=== PATIENT | female | born 1945 | race Caucasian/White ===

== ENCOUNTER 2022-11-01 17:12 | Inpatient (IN) | payer BC, OTHER ==
[~2022-11-01] VITALS: Ht 170.2 cm; Wt 61.7 kg
[2022-11-01] MEDS ORDERED: OLANZAPINE 10 MG VIAL IM ONE ×2 (17:55→18:00)
[2022-11-01 20:07] LABS: BASOPHILS # (AUTO) 0.1 K/uL (0.0-0.2); BASOPHILS % (AUTO) 1.1 % (0.0-2.0); EOSINOPHILS # (AUTO) 0.1 K/uL (0.0-0.7); EOSINOPHILS % (AUTO) 1.3 % (0.0-6.0); HEMATOCRIT 35 % (33-45); HEMOGLOBIN 11.3 g/dL (11.5-14.8); MEAN CORPUSCULAR HEMOGLOBIN 28 PG (26.0-33.0); MEAN CORPUSCULAR HGB CONC 32 g/dl (31.0-36.0); MEAN CORPUSCULAR VOLUME 87 fL (82-100); MONOCYTES # (AUTO) 0.8 K/uL (0.1-1.30); MONOCYTES % (AUTO) 7.3 % (2.0-12.0); NEUTROPHILS # (AUTO) 9.3 K/uL (1.8-8.9); NEUTROPHILS % (AUTO) 81.3 % (43.0-81.0); PLATELET COUNT (AUTO) 515 K/uL (150-450); RED BLOOD CELL COUNT(AUTO) 4.03 MIL/uL (4.0-5.2); RED CELL DISTRIBUTION WIDTH 15.6 % (11.5-15.0); WHITE BLOOD COUNT (AUTO) 11.4 K/uL (4.3-11.0)
[2022-11-01 20:11] LABS: APPEARANCE,URINE CLEAR (CLEAR); BILIRUBIN,URINE NEGATIVE (NEGATIVE); BLOOD, URINE NEGATIVE Ery/uL (NEGATIVE); COLOR,URINE YELLOW (YELLOW); KETONES,URINE TRACE mg/dL (NEGATIVE); LEUKOCYTE ESTERASE ,URINE NEGATIVE (NEGATIVE); NITRITE, URINE NEGATIVE (NEGATIVE); PROTEIN,URINE NEGATIVE (NEGATIVE); UGLUCOSE NEGATIVE (NEGATIVE); UROBILINOGEN,URINE 0.2 EU/dL (0.2)
[2022-11-01 20:25] LABS: RBC,URINE 0-2 /HPF (0-2); WBC,URINE 0-2 /HPF (0-3)
[2022-11-01 20:26] LABS: ADD URINE CULTURE NO; HYALINE CASTS, URINE Rare /LPF (None Seen); SQUAMOUS EPITHELIAL CELL,UR Rare /HPF (None Seen)
[2022-11-01 20:27] LABS: AMPHETAMINE, URINE NEGATIVE (NEGATIVE); BACTERIA,URINE 1+ /HPF (None Seen); BARBITURATE, URINE NEGATIVE (NEGATIVE); BENZODIAZEPINE, URINE NEGATIVE (NEGATIVE); COCCAINE, URINE NEGATIVE (NEGATIVE); PHENCYCLIDINE SCREEN,URINE NEGATIVE (NEGATIVE)
[2022-11-01 20:28] LABS: CALCIUM, SERUM 10.7 mg/dL (8.5-10.1); CARBON DIOXIDE 22 mmol/L (21-32); CHLORIDE 100 mmol/L (98-107); CREATININE 1.2 mg/dL (0.6-1.3); GLUCOSE 129 mg/dL (74-106); POTASSIUM 4.4 mmol/L (3.5-5.1); SODIUM SERUM 132 mmol/L (136-145); UREA NITROGEN, BLOOD 18 mg/dL (7-18)
[2022-11-01 20:29] LABS: CANNABINOID, URINE POSITIVE (NEGATIVE); OPIATE, URINE POSITIVE (NEGATIVE)
[2022-11-01 20:34] LABS: ALANINE AMINOTRANSFERASE 18 U/L (12-78); ALBUMIN 3.7 g/dL (3.4-5.0); ALKALINE PHOSPHATASE 116 U/L (46-116); ASPARTATE AMINOTRANSFERASE 52 U/L (15-37); BILIRUBIN,DIRECT 0.1 mg/dL (0.0-0.2); BILIRUBIN,TOTAL 0.6 mg/dL (0.2-1.0); TOTAL PROTEIN, SERUM 8.3 g/dL (6.4-8.2)
[2022-11-01 20:35] LABS: ACETAMINOPHEN 0 ug/ml (10-30); ALCOHOL, BLOOD < 3 mg/dL (0-10); SALICYLATE 2.4 mg/dL (2.8-20.0)
[2022-11-02] MEDS ORDERED: LORAZEPAM INJ 2 MG/ML VIAL ONE (01:27)
[2022-11-02] MEDS ORDERED: LORAZEPAM INJ 2 MG/ML VIAL IM ONE (01:30)
[2022-11-02] MEDS: DONEPEZIL 5 MG TABLET PO SCH ×2 (02:00→22:19)
[2022-11-02] MEDS: SERTRALINE HCL 50 MG TABLET PO SCH ×2 (02:00→09:00)
[2022-11-02] MEDS: MEMANTINE HCL 5 MG TABLET PO SCH ×4 (02:00→22:19)
[2022-11-02] MEDS ORDERED: MEMANTINE HCL 5 MG TABLET ONE (02:05)
[2022-11-02] MEDS ORDERED: DONEPEZIL 5 MG TABLET ONE (02:05)
[2022-11-02] MEDS: SERTRALINE HCL 50 MG TABLET ONE ×2 (02:29→02:34)
[2022-11-02] MEDS ORDERED: DONE10TA44 PO (10:00)
[2022-11-02] MEDS ORDERED: LAMO200T10 PO (10:00)
[2022-11-02] MEDS ORDERED: MAGN400O6 PO (10:00)
[2022-11-02] MEDS ORDERED: ASCO-352 PO (10:00)
[2022-11-02] MEDS ORDERED: ACET650S11 RC (10:00)
[2022-11-02] MEDS ORDERED: FAMO20TA8 PO (10:00)
[2022-11-02] MEDS ORDERED: SERT100T PO (10:00)
[2022-11-02] MEDS ORDERED: LOSA100T31 PO (10:00)
[2022-11-02] MEDS ORDERED: MULT-447 PO (10:00)
[2022-11-02] MEDS ORDERED: ACET-868 PO (10:00)
[2022-11-02] MEDS ORDERED: BISA10SU11 RC (10:00)
[2022-11-02] MEDS ORDERED: MEMA10TA PO (10:00)
[2022-11-02] MEDS ORDERED: IBUP-1955 PO (10:00)
[2022-11-02] MEDS ORDERED: FERR325T23 PO (10:00)
[2022-11-02] MEDS ORDERED: SENN-261 PO (10:00)
[2022-11-02] MEDS ORDERED: CRAN425C6 PO (10:00)
[2022-11-02] MEDS ORDERED: CHOL100043 PO (10:00)
[2022-11-02] MEDS ORDERED: ALBU18HF2 IH (10:00)
[2022-11-02] MEDS ORDERED: LEVO750P5 IV (10:00)
[2022-11-02] MEDS ORDERED: IPRA3AMP23 IH (10:00)
[2022-11-02] MEDS ORDERED: GABA-532 PO (10:00)
[2022-11-02] MEDS ORDERED: DOCU-141 PO (10:00)
[2022-11-02] MEDS ORDERED: ACET-2605 PO ×2 (10:00)
[2022-11-02] MEDS ORDERED: OLANZAPINE 5 MG TABLET PO ONE (17:00)
[2022-11-02 19:45] VITALS: BP 120/90; TEMP 99.7; O2SAT 98
[2022-11-02] MEDS ORDERED: ONDANSETRON HCL/PF 4 MG/2 ML VIAL IVP PRN (20:30)
[2022-11-02] MEDS ORDERED: DEXTROSE 50%-WATER 50 ML DISP.SYRIN IV PRN (20:30)
[2022-11-02] MEDS: SENNOSIDES 8.6 MG TABLET PO SCH (22:19)
[2022-11-02] MEDS: LamoTRIgine 25 MG TABLET PO SCH (22:19)
[2022-11-02] MEDS: LamoTRIgine 100 MG TABLET PO SCH (22:19)
[2022-11-02] MEDS: BLOOD SUGAR DIAGNOSTIC 1 EACH STRIP IN SCH (22:47)
[2022-11-02] MEDS: INSULIN REGULAR, HUMAN 100 UNIT/ML 3 ML VIAL SQ PRN (22:47)
[2022-11-02] MEDS: CEPHALEXIN MONOHYDRATE 250 MG CAPSULE PO SCH (23:57)
[2022-11-03] MEDS: IV NS 0.9% 1,000 ML IV PRN ×2 (00:05→12:20)
[2022-11-03 05:00] VITALS: BP 104/49; TEMP 98.4; O2SAT 95
[2022-11-03 05:47] LABS: BASOPHILS # (AUTO) 0.1 K/uL (0.0-0.2); BASOPHILS % (AUTO) 1.1 % (0.0-2.0); EOSINOPHILS # (AUTO) 0.2 K/uL (0.0-0.7); EOSINOPHILS % (AUTO) 2.2 % (0.0-6.0); HEMATOCRIT 31 % (33-45); HEMOGLOBIN 9.9 g/dL (11.5-14.8); LYMPHOCYTES # (AUTO) 1.2 K/uL (0.8-4.8); LYMPHOCYTES % (AUTO) 16.7 % (20.0-44.0); MEAN CORPUSCULAR HEMOGLOBIN 28 PG (26.0-33.0); MEAN CORPUSCULAR HGB CONC 32 g/dl (31.0-36.0); MEAN CORPUSCULAR VOLUME 87 fL (82-100); MONOCYTES # (AUTO) 0.6 K/uL (0.1-1.30); MONOCYTES % (AUTO) 8.3 % (2.0-12.0); NEUTROPHILS # (AUTO) 5.4 K/uL (1.8-8.9); NEUTROPHILS % (AUTO) 71.7 % (43.0-81.0); PLATELET COUNT (AUTO) 339 K/uL (150-450); RED BLOOD CELL COUNT(AUTO) 3.53 MIL/uL (4.0-5.2); RED CELL DISTRIBUTION WIDTH 15.4 % (11.5-15.0); WHITE BLOOD COUNT (AUTO) 7.5 K/uL (4.3-11.0)
[2022-11-03] MEDS: CEPHALEXIN MONOHYDRATE 250 MG CAPSULE PO SCH ×3 (06:00→18:00)
[2022-11-03 06:07] LABS: CHOLESTEROL 218 mg/dL (<200); HDL CHOLESTEROL 89 mg/dL (40-60); LDL 98 mg/dL (0-99); TRIGLYCERIDES 84 mg/dL (30-150)
[2022-11-03 06:18] LABS: CALCIUM, SERUM 9.8 mg/dL (8.5-10.1); CARBON DIOXIDE 24 mmol/L (21-32); CHLORIDE 103 mmol/L (98-107); CREATININE 1.6 mg/dL (0.6-1.3); GLUCOSE 105 mg/dL (74-106); PHOSPHORUS 4.4 mg/dL (2.5-4.9); SODIUM SERUM 139 mmol/L (136-145); UREA NITROGEN, BLOOD 32 mg/dL (7-18)
[2022-11-03] MEDS: INSULIN REGULAR, HUMAN 100 UNIT/ML 3 ML VIAL SQ PRN ×3 (06:50→22:33)
[2022-11-03] MEDS: BLOOD SUGAR DIAGNOSTIC 1 EACH STRIP IN SCH ×4 (06:50→22:33)
[2022-11-03] MEDS: CHOLECALCIFEROL (VITAMIN D 3) 400 UNIT TABLET PO SCH (09:00)
[2022-11-03] MEDS: MULTIVIT W/MINERALS 1 TAB TABLET PO SCH (09:00)
[2022-11-03] MEDS: FERROUS SULFATE (325 MG) 325 MG/TAB TABLET PO SCH ×2 (09:00→17:00)
[2022-11-03] MEDS: SERTRALINE HCL 50 MG TABLET PO SCH (09:00)
[2022-11-03] MEDS: CHLORHEXIDINE GLUCONATE 15 ML UDC MM SCH ×4 (09:00→21:35)
[2022-11-03] MEDS: MEMANTINE HCL 5 MG TABLET PO SCH ×2 (09:00→17:00)
[2022-11-03] MEDS: LamoTRIgine 100 MG TABLET PO SCH ×2 (09:00→21:00)
[2022-11-03] MEDS: FAMOTIDINE (20 MG) 20 MG TABLET PO SCH (09:00)
[2022-11-03] MEDS: DOCUSATE SODIUM 100 MG CAPSULE PO SCH (09:00)
[2022-11-03] MEDS: LOSARTAN POTASSIUM 50 MG TABLET PO SCH (09:00)
[2022-11-03] MEDS: ASCORBIC ACID 500 MG TABLET PO SCH (09:00)
[2022-11-03] MEDS: LamoTRIgine 25 MG TABLET PO SCH ×2 (09:00→21:00)
[2022-11-03 10:24] LABS: ABG BASE EXCESS 1.7 mmol/L; ABG OXYGEN SATURATION 92.7 % (92.0-98.5); ABG PCO2 45.2 mmHg (35.0-45.0); ABG PH 7.394 (7.350-7.450); ABG PO2 67.6 mmHg (75.0-100.0); ABG TOTAL HEMOGLOBIN 10.8 G/dL (12.0-16.0); COHb 0.5 % (0.5-1.5); O2Hb 92.2 % (94.0-97.0); SITE, ABG Right Radial; VENT MODE, BG ROOM AIR
[2022-11-03 20:00] VITALS: BP 112/72; TEMP 98.6; O2SAT 100
[2022-11-03] MEDS: SENNOSIDES 8.6 MG TABLET PO SCH (22:00)
[2022-11-03] MEDS: DONEPEZIL 5 MG TABLET PO SCH (22:00)
[2022-11-04] MEDS: CEPHALEXIN MONOHYDRATE 250 MG CAPSULE PO SCH ×6 (00:59→23:41)
[2022-11-04] MEDS: CHLORHEXIDINE GLUCONATE 15 ML UDC MM SCH ×6 (00:59→20:57)
[2022-11-04 01:00] VITALS: BP 144/84; TEMP 97.7; O2SAT 94
[2022-11-04] MEDS: ACETAMINOPHEN 325 MG TABLET PO PRN ×2 (01:00→16:09)
[2022-11-04] MEDS: IV NS 0.9% 1,000 ML IV PRN ×2 (01:21→17:55)
[2022-11-04 04:00] VITALS: BP 114/57; TEMP 97.6; O2SAT 94
[2022-11-04] MEDS: BLOOD SUGAR DIAGNOSTIC 1 EACH STRIP IN SCH ×4 (06:39→21:51)
[2022-11-04] MEDS: INSULIN REGULAR, HUMAN 100 UNIT/ML 3 ML VIAL SQ PRN ×3 (06:40→16:43)
[2022-11-04 08:03] VITALS: O2SAT 96
[2022-11-04] MEDS: ALBUTEROL FS 2.5 MG/3 ML VIAL.NEB NEB SCH (08:03)
[2022-11-04 08:19] VITALS: O2SAT 99
[2022-11-04] MEDS: LamoTRIgine 100 MG TABLET PO SCH ×2 (09:11→20:57)
[2022-11-04] MEDS: FERROUS SULFATE (325 MG) 325 MG/TAB TABLET PO SCH ×2 (09:11→16:09)
[2022-11-04] MEDS: CHOLECALCIFEROL (VITAMIN D 3) 400 UNIT TABLET PO SCH (09:11)
[2022-11-04] MEDS: ASCORBIC ACID 500 MG TABLET PO SCH (09:12)
[2022-11-04] MEDS: DOCUSATE SODIUM 100 MG CAPSULE PO SCH (09:12)
[2022-11-04] MEDS: FAMOTIDINE (20 MG) 20 MG TABLET PO SCH (09:12)
[2022-11-04] MEDS: MEMANTINE HCL 5 MG TABLET PO SCH ×2 (09:12→16:09)
[2022-11-04] MEDS: MULTIVIT W/MINERALS 1 TAB TABLET PO SCH (09:12)
[2022-11-04] MEDS: LOSARTAN POTASSIUM 50 MG TABLET PO SCH (09:13)
[2022-11-04] MEDS: LamoTRIgine 25 MG TABLET PO SCH ×2 (09:21→20:57)
[2022-11-04] MEDS: SERTRALINE HCL 50 MG TABLET PO SCH (09:21)
[2022-11-04 11:29] LABS: BASOPHILS # (AUTO) 0.1 K/uL (0.0-0.2); EOSINOPHILS # (AUTO) 0.3 K/uL (0.0-0.7); EOSINOPHILS % (AUTO) 4.8 % (0.0-6.0); HEMATOCRIT 29 % (33-45); HEMOGLOBIN 9.7 g/dL (11.5-14.8); LYMPHOCYTES # (AUTO) 1.2 K/uL (0.8-4.8); LYMPHOCYTES % (AUTO) 18.8 % (20.0-44.0); MEAN CORPUSCULAR HEMOGLOBIN 28 PG (26.0-33.0); MEAN CORPUSCULAR HGB CONC 33 g/dl (31.0-36.0); MEAN CORPUSCULAR VOLUME 86 fL (82-100); MONOCYTES # (AUTO) 0.4 K/uL (0.1-1.30); MONOCYTES % (AUTO) 6.6 % (2.0-12.0); NEUTROPHILS # (AUTO) 4.2 K/uL (1.8-8.9); NEUTROPHILS % (AUTO) 68.8 % (43.0-81.0); PLATELET COUNT (AUTO) 298 K/uL (150-450); RED CELL DISTRIBUTION WIDTH 15.3 % (11.5-15.0); WHITE BLOOD COUNT (AUTO) 6.2 K/uL (4.3-11.0)
[2022-11-04] MEDS ORDERED: Z GUARD REMEDY 4 OZ OINT TP PRN (11:30)
[2022-11-04 11:39] LABS: CALCIUM, SERUM 9.4 mg/dL (8.5-10.1); CARBON DIOXIDE 25 mmol/L (21-32); CHLORIDE 104 mmol/L (98-107); CREATININE 1.1 mg/dL (0.6-1.3); GLUCOSE 103 mg/dL (74-106); MAGNESIUM 1.9 mg/dL (1.8-2.4); PHOSPHORUS 2.2 mg/dL (2.5-4.9); POTASSIUM 3.9 mmol/L (3.5-5.1); SODIUM SERUM 138 mmol/L (136-145); UREA NITROGEN, BLOOD 29 mg/dL (7-18)
[2022-11-04] MEDS: Z GUARD REMEDY 4 OZ OINT TP SCH (12:16)
[2022-11-04] MEDS ORDERED: K PHOS NEUTRAL 250 MG TABLET PO ONE (16:00)
[2022-11-04 20:00] VITALS: BP 92/45; TEMP 97.6; O2SAT 93
[2022-11-04] MEDS: DONEPEZIL 5 MG TABLET PO SCH (21:44)
[2022-11-04] MEDS: SENNOSIDES 8.6 MG TABLET PO SCH (21:44)
[2022-11-05] VITALS: BP 156/76; TEMP 98; O2SAT 95
[2022-11-05] MEDS: CHLORHEXIDINE GLUCONATE 15 ML UDC MM SCH ×4 (01:00→12:15)
[2022-11-05 04:00] VITALS: BP 108/57; TEMP 98.1; O2SAT 94
[2022-11-05] MEDS: CEPHALEXIN MONOHYDRATE 250 MG CAPSULE PO SCH ×2 (05:34→12:11)
[2022-11-05 05:56] LABS: EOSINOPHILS # (AUTO) 0.2 K/uL (0.0-0.7); EOSINOPHILS % (AUTO) 4.7 % (0.0-6.0); HEMATOCRIT 29 % (33-45); HEMOGLOBIN 9.5 g/dL (11.5-14.8); LYMPHOCYTES # (AUTO) 0.7 K/uL (0.8-4.8); LYMPHOCYTES % (AUTO) 21.1 % (20.0-44.0); MEAN CORPUSCULAR HEMOGLOBIN 29 PG (26.0-33.0); MEAN CORPUSCULAR HGB CONC 33 g/dl (31.0-36.0); MEAN CORPUSCULAR VOLUME 86 fL (82-100); MONOCYTES # (AUTO) 0.2 K/uL (0.1-1.30); MONOCYTES % (AUTO) 6.7 % (2.0-12.0); NEUTROPHILS # (AUTO) 2.4 K/uL (1.8-8.9); NEUTROPHILS % (AUTO) 66.5 % (43.0-81.0); PLATELET COUNT (AUTO) 217 K/uL (150-450); RED BLOOD CELL COUNT(AUTO) 3.31 MIL/uL (4.0-5.2); RED CELL DISTRIBUTION WIDTH 15.5 % (11.5-15.0); WHITE BLOOD COUNT (AUTO) 3.5 K/uL (4.3-11.0)
[2022-11-05 06:19] LABS: CARBON DIOXIDE 27 mmol/L (21-32); CHLORIDE 106 mmol/L (98-107); CREATININE 1.1 mg/dL (0.6-1.3); GLUCOSE 105 mg/dL (74-106); MAGNESIUM 2.1 mg/dL (1.8-2.4); PHOSPHORUS 2.7 mg/dL (2.5-4.9); POTASSIUM 3.5 mmol/L (3.5-5.1); SODIUM SERUM 139 mmol/L (136-145); UREA NITROGEN, BLOOD 25 mg/dL (7-18)
[2022-11-05] MEDS: BLOOD SUGAR DIAGNOSTIC 1 EACH STRIP IN SCH ×2 (06:22→12:11)
[2022-11-05 08:00] VITALS: O2SAT 97
[2022-11-05] MEDS: ALBUTEROL FS 2.5 MG/3 ML VIAL.NEB NEB SCH (08:00)
[2022-11-05 08:10] VITALS: O2SAT 99
[2022-11-05] MEDS: FAMOTIDINE (20 MG) 20 MG TABLET PO SCH (09:21)
[2022-11-05] MEDS: DOCUSATE SODIUM 100 MG CAPSULE PO SCH (09:21)
[2022-11-05] MEDS: FERROUS SULFATE (325 MG) 325 MG/TAB TABLET PO SCH (09:21)
[2022-11-05] MEDS: LamoTRIgine 25 MG TABLET PO SCH (09:21)
[2022-11-05] MEDS: LamoTRIgine 100 MG TABLET PO SCH (09:21)
[2022-11-05] MEDS: MULTIVIT W/MINERALS 1 TAB TABLET PO SCH (09:21)
[2022-11-05 09:22] VITALS: BP 152/91
[2022-11-05] MEDS: ASCORBIC ACID 500 MG TABLET PO SCH (09:22)
[2022-11-05] MEDS: LOSARTAN POTASSIUM 50 MG TABLET PO SCH (09:22)
[2022-11-05] MEDS: CHOLECALCIFEROL (VITAMIN D 3) 400 UNIT TABLET PO SCH (09:22)
[2022-11-05] MEDS: MEMANTINE HCL 5 MG TABLET PO SCH (09:22)
[2022-11-05] MEDS: Z GUARD REMEDY 4 OZ OINT TP SCH (09:46)
[2022-11-05] MEDS ORDERED: CEPH500T PO (10:06)
== END 2022-11-05 16:42 | DRG 640 ==
LOC: ER 17:29 → MED 11-02 18:36 → TELE 11-03 09:59
PROVIDERS: ADMIT Nurse Practitioner Acute Care; ATTEND Nurse Practitioner Acute Care
DX: E86.0 Dehydration (principal); G93.41 Metabolic encephalopathy; N39.0 Urinary tract infection, site not specified; F03.918 Unspecified dementia, unspecified severity, with other behavioral disturbance; T81.31XA Disruption of external operation (surgical) wound, not elsewhere classified, initial encounter; E87.1 Hypo-osmolality and hyponatremia; E83.52 Hypercalcemia; D72.829 Elevated white blood cell count, unspecified; G40.909 Epilepsy, unspecified, not intractable, without status epilepticus; J44.9 Chronic obstructive pulmonary disease, unspecified; I10 Essential (primary) hypertension; Z20.822 Contact with and (suspected) exposure to COVID-19; E11.9 Type 2 diabetes mellitus without complications; F31.9 Bipolar disorder, unspecified; Z98.890 Other specified postprocedural states; Z79.51 Long term (current) use of inhaled steroids; Z79.899 Other long term (current) drug therapy; B96.89 Other specified bacterial agents as the cause of diseases classified elsewhere; F29 Unspecified psychosis not due to a substance or known physiological condition; L98.9 Disorder of the skin and subcutaneous tissue, unspecified; Y83.8 Other surgical procedures as the cause of abnormal reaction of the patient, or of later complication, without mention of misadventure at the time of the procedure; Y92.129 Unspecified place in nursing home as the place of occurrence of the external cause; F39 Unspecified mood [affective] disorder; R82.5 Elevated urine levels of drugs, medicaments and biological substances
CPT/HCPCS: 36415; 36600; 71045-TC; 80048-TC; 80061-TC; 80076-TC; 81001; 82962-TC; 83735-TC; 84100-TC; 85025-TC; 87081-TC; 87086-TC; 92526; 92611-TC; 97110-TC; 97116-TC; 97530-TC; A4223; A6253; C9803; G0378; G0480; J1815; J2060; J3490; J7030

== ENCOUNTER 2022-11-06 08:38 | Emergency (ER) | payer OTHER ==
[~2022-11-06] VITALS: Ht 180.3 cm; Wt 99.8 kg
[~2022-11-06 08:38] MED LIST: ACET-2605 PO; ACET-868 PO; ACET650S11 RC; ALBU18HF2 IH; ASCO-352 PO; BISA10SU11 RC; CEPH500T PO; CHOL100043 PO; CRAN425C6 PO; DOCU-141 PO; DONE10TA44 PO; FAMO20TA8 PO; FERR325T23 PO; GABA-532 PO; IBUP-1955 PO; IPRA3AMP23 IH; LAMO200T10 PO; LEVO750P5 IV; LOSA100T31 PO; MAGN400O6 PO; MEMA10TA PO; MULT-447 PO; SENN-261 PO; SERT100T PO
[2022-11-06 08:45] VITALS: BP 143/70; TEMP 98.5; O2SAT 100
== END 2022-11-06 09:22 ==
LOC: ER 08:40
DX: Z09 Encounter for follow-up examination after completed treatment for conditions other than malignant neoplasm (principal); I10 Essential (primary) hypertension; E11.9 Type 2 diabetes mellitus without complications; Z98.890 Other specified postprocedural states; Z79.899 Other long term (current) drug therapy

== ENCOUNTER 2023-01-28 11:18 | Inpatient (IN) | payer OTHER ==
[~2023-01-28] VITALS: Ht 152.4 cm; Wt 57.4 kg
[~2023-01-28 11:18] MED LIST changes: -LEVO750P5 IV; -SERT100T PO
[2023-01-28 12:19] LABS: BASOPHILS % (AUTO) 0.4 % (0.0-2.0); EOSINOPHILS # (AUTO) 0.2 K/uL (0.0-0.7); EOSINOPHILS % (AUTO) 3.5 % (0.0-6.0); HEMATOCRIT 35 % (33-45); HEMOGLOBIN 11.6 g/dL (11.5-14.8); LYMPHOCYTES # (AUTO) 1.1 K/uL (0.8-4.8); LYMPHOCYTES % (AUTO) 19.8 % (20.0-44.0); MEAN CORPUSCULAR HEMOGLOBIN 28 PG (26.0-33.0); MEAN CORPUSCULAR HGB CONC 33 g/dl (31.0-36.0); MEAN CORPUSCULAR VOLUME 83 fL (82-100); MONOCYTES # (AUTO) 0.4 K/uL (0.1-1.30); MONOCYTES % (AUTO) 7.3 % (2.0-12.0); NEUTROPHILS # (AUTO) 3.7 K/uL (1.8-8.9); PLATELET COUNT (AUTO) 185 K/uL (150-450); RED BLOOD CELL COUNT(AUTO) 4.19 MIL/uL (4.0-5.2); RED CELL DISTRIBUTION WIDTH 15.4 % (11.5-15.0); WHITE BLOOD COUNT (AUTO) 5.4 K/uL (4.3-11.0)
[2023-01-28 12:28] LABS: CALCIUM, SERUM 10.3 mg/dL (8.5-10.1); CREATININE 1.2 mg/dL (0.6-1.3); POTASSIUM 3.5 mmol/L (3.5-5.1)
[2023-01-28 12:31] LABS: ALBUMIN 3.6 g/dL (3.4-5.0); BILIRUBIN,DIRECT 0.1 mg/dL (0.0-0.2); BILIRUBIN,TOTAL 0.4 mg/dL (0.2-1.0); TOTAL PROTEIN, SERUM 7.8 g/dL (6.4-8.2)
[2023-01-28 13:17] LABS: APPEARANCE,URINE CLEAR (CLEAR); BILIRUBIN,URINE NEGATIVE (NEGATIVE); BLOOD, URINE NEGATIVE Ery/uL (NEGATIVE); COLOR,URINE YELLOW (YELLOW); KETONES,URINE NEGATIVE (NEGATIVE); LEUKOCYTE ESTERASE ,URINE NEGATIVE (NEGATIVE); NITRITE, URINE NEGATIVE (NEGATIVE); PH,URINE 5.5 (5.0-8.0); PROTEIN,URINE NEGATIVE (NEGATIVE); UGLUCOSE NEGATIVE (NEGATIVE); UROBILINOGEN,URINE 0.2 EU/dL (0.2)
[2023-01-28] MEDS ORDERED: NA PHOS,M-B/NA PHOS,DI-BA 1 EA ENEMA RC ONE ×2 (13:30→13:33)
[2023-01-28] MEDS ORDERED: NA P133E RC (14:21)
[2023-01-28] MEDS ORDERED: KETOROLAC TROMETHAMINE 15 MG/ML VIAL IV ONE (14:30)
[2023-01-28] MEDS ORDERED: KETOROLAC TROMETHAMINE 15 MG/ML VIAL ONE (14:42)
[2023-01-28] MEDS ORDERED: MEMA10TA56 PO (14:58)
[2023-01-28] MEDS ORDERED: LAMO100T2 PO (14:58)
[2023-01-28] MEDS ORDERED: SERT50TA PO (14:58)
[2023-01-28] MEDS ORDERED: PSYL3.4P6 PO (14:59)
[2023-01-28] MEDS ORDERED: LOSA100T31 PO (14:59)
[2023-01-28] MEDS ORDERED: SENN-261 PO (14:59)
[2023-01-28] MEDS ORDERED: BISA-79 PO (14:59)
[2023-01-28] MEDS ORDERED: ONDANSETRON HCL/PF 4 MG/2 ML VIAL IVP PRN (15:00)
[2023-01-28] MEDS ORDERED: MORPHINE SULFATE INJ 2 MG/ML DISP.SYRIN IV PRN (15:00)
[2023-01-28] MEDS ORDERED: IV NS 0.9% 1,000 ML IV PRN (15:00)
[2023-01-28 15:15] LABS: LACTIC ACID 2.1 mmol/L (0.4-2.0)
[2023-01-28] MEDS ORDERED: DIATR MEGLU/DIATRIZOATE SODIUM 120 ML BOTTLE (GASTROGRAPHIN) ONE (15:18)
[2023-01-28] MEDS ORDERED: LOSARTAN POTASSIUM 50 MG TABLET PO PRN (20:30)
[2023-01-28] MEDS: HEPARIN SODIUM, PORCINE 5000 UNITS/1 ML VIAL SQ SCH (23:25)
[2023-01-29 07:37] LABS: EOSINOPHILS # (AUTO) 0.3 K/uL (0.0-0.7); EOSINOPHILS % (AUTO) 6.5 % (0.0-6.0); HEMATOCRIT 35 % (33-45); HEMOGLOBIN 11.5 g/dL (11.5-14.8); LYMPHOCYTES % (AUTO) 22.5 % (20.0-44.0); MEAN CORPUSCULAR HEMOGLOBIN 28 PG (26.0-33.0); MEAN CORPUSCULAR HGB CONC 33 g/dl (31.0-36.0); MEAN CORPUSCULAR VOLUME 84 fL (82-100); MONOCYTES # (AUTO) 0.3 K/uL (0.1-1.30); MONOCYTES % (AUTO) 6.1 % (2.0-12.0); NEUTROPHILS # (AUTO) 2.9 K/uL (1.8-8.9); NEUTROPHILS % (AUTO) 63.9 % (43.0-81.0); PLATELET COUNT (AUTO) 178 K/uL (150-450); RED BLOOD CELL COUNT(AUTO) 4.18 MIL/uL (4.0-5.2); RED CELL DISTRIBUTION WIDTH 15.8 % (11.5-15.0); WHITE BLOOD COUNT (AUTO) 4.5 K/uL (4.3-11.0)
[2023-01-29 07:52] LABS: ALANINE AMINOTRANSFERASE 19 U/L (12-78); ALBUMIN 3.3 g/dL (3.4-5.0); ALKALINE PHOSPHATASE 86 U/L (46-116); ASPARTATE AMINOTRANSFERASE 21 U/L (15-37); BILIRUBIN,TOTAL 0.3 mg/dL (0.2-1.0); CALCIUM, SERUM 10.1 mg/dL (8.5-10.1); CARBON DIOXIDE 25 mmol/L (21-32); CHLORIDE 105 mmol/L (98-107); CREATININE 1.3 mg/dL (0.6-1.3); GLUCOSE 104 mg/dL (74-106); MAGNESIUM 2.3 mg/dL (1.8-2.4); POTASSIUM 3.5 mmol/L (3.5-5.1); SODIUM SERUM 137 mmol/L (136-145); TOTAL PROTEIN, SERUM 7.4 g/dL (6.4-8.2); UREA NITROGEN, BLOOD 15 mg/dL (7-18)
[2023-01-29 08:00] VITALS: BP 126/77; TEMP 97.3; O2SAT 97
[2023-01-29] MEDS: SERTRALINE HCL 50 MG TABLET PO SCH (08:18)
[2023-01-29] MEDS: MEMANTINE HCL 5 MG TABLET PO SCH ×2 (08:18→17:41)
[2023-01-29] MEDS: LamoTRIgine 100 MG TABLET PO SCH ×2 (08:18→17:41)
[2023-01-29] MEDS: HEPARIN SODIUM, PORCINE 5000 UNITS/1 ML VIAL SQ SCH ×3 (08:20→21:00)
[2023-01-29 16:00] VITALS: BP 161/76; TEMP 97.9; O2SAT 98
[2023-01-29 20:00] VITALS: BP 138/68; TEMP 97.9; O2SAT 95
[2023-01-30] MEDS: LamoTRIgine 100 MG TABLET PO SCH (08:21)
[2023-01-30] MEDS: SERTRALINE HCL 50 MG TABLET PO SCH (08:21)
[2023-01-30] MEDS: MEMANTINE HCL 5 MG TABLET PO SCH (08:21)
[2023-01-30] MEDS: HEPARIN SODIUM, PORCINE 5000 UNITS/1 ML VIAL SQ SCH ×2 (08:22→08:40)
[2023-01-30] MEDS ORDERED: DOCU-141 PO (09:40)
== END 2023-01-30 10:00 | disposition left against medical advice (07) | DRG 392 ==
LOC: ER 11:20 → MED 22:31
PROVIDERS: ADMIT Internal Medicine; ATTEND Internal Medicine
DX: K59.00 Constipation, unspecified (principal); E87.1 Hypo-osmolality and hyponatremia; E87.20 Acidosis, unspecified; G40.909 Epilepsy, unspecified, not intractable, without status epilepticus; F03.90 Unspecified dementia, unspecified severity, without behavioral disturbance, psychotic disturbance, mood disturbance, and anxiety; Z87.19 Personal history of other diseases of the digestive system; E11.9 Type 2 diabetes mellitus without complications; R26.9 Unspecified abnormalities of gait and mobility; Z79.51 Long term (current) use of inhaled steroids; Z79.899 Other long term (current) drug therapy; I10 Essential (primary) hypertension
CPT/HCPCS: 36415; 74250-TC; 80048-TC; 80053-TC; 80076-TC; 83605-TC; 83690-TC; 83735-TC; 84100-TC; 85025-TC; 87081-TC; A4223; A6403; G0378; J1644; J1885; J7030; Q9963